=== PATIENT | male | born 1955 | race Caucasian/White ===

== ENCOUNTER 2018-01-19 00:10 | Observation (INO) | payer OTHER ==
[~2018-01-19 00:10] MED LIST: ACETAMINOPHEN 325 MG TAB PO PRN; HYDROmorphone HCL PF 1 MG/ML VIAL IV PUSH PRN; HYDROmorphone HCL PF 2 MG/ML VIAL IV PUSH PRN; LACTATED RINGER'S 1000 ML INJ 1,000 ML IV SCH; NALOXONE HCL 0.4 MG/ML AMP IV PUSH PRN; ONDANSETRON HCL 4 MG/2 ML VIAL IVP PRN; PERC5TAB12 PO; SODIUM CHLORIDE 0.9% FLUSH 10 ML FLUSH IV FLUSH PRN; TAMS5CAP PO; ZOFR4TAB3 SL
[2018-01-19 01:07] VITALS: BP 127/73; PULSE 56; RESP 16; TEMP 97.7; O2SAT 94
--- NOTE | 2018-01-19 04:32 | HHI.HP ---
HPI Service [facility] . Primary Care Physician Ivan Lutz MD . Admission Diagnosis Intractable pain . Diagnoses: (1) Intractable pain Chief Complaint: Intractable right flank/groin pain Travel History International Travel<30 Days: No Contact w/Intl Traveler <30 Da: No History of Present Illness Mr. Stockton is a pleasant 62 y/o male with a past medical history of hemophilia , nephrolithiasis, hepatitis C (treated), and renal cell CA who presented to the ER on 01/18/18 in [place] with right flank and groin pain radiating to his thigh. Abdomen/pelvis CT showed 4 mm right nephrolithiasis in distal ureter with mild hydronephrosis and 4 cm exophytic lower pole right renal mass and extensive lower hilar and mediastinal adenopathy. He was treated with IV Dilaudid but pain persisted and he was transferred to [facility] for observation and further medical management. The patient is seen in the CDU. The patient reports pain is now a 2/10, aching in quality. He had one episode of nausea with vomiting upon arrival 3 hours ago but reports he is currently nausea-free. He would like a trial of liquids and wants to follow up with [facility] which is where he is treated for renal cell CA. He says the 4 cm right renal mass is not new and he is treated with ablation at [facility] because of his high surgical risk due to hemophilia. Of note, when his symptoms started yesterday, he self injected 6000 units of Factor IX. Review of Systems Except as stated in HPI: all other systems reviewed are Neg Past Family Social History Past Medical History Hemophilia B Nephrolithiasis Renal Cell CA . Past Surgical History Appendectomy as a teen Left middle finger reattachment . Reported Medications Reported Meds & Active Scripts Active Zofran Odt (Ondansetron Odt) 4 Mg Tab 4 Mg SL Q6HR PRN Flomax (Tamsulosin HCl) 0.4 Mg Cap 0.4 Mg PO HS Percocet (Oxycodone-Acetaminophen) 5-325 mg Tab 1 Tab PO Q6H PRN . Allergies: Coded Allergies: No Known Allergies (Unverified , 01/18/18) Family History Father with Myasthenia gravis, from complications of age 86 Mother from parkinsonian-like brain dysfunction following anesthesia for lumbar laminectomy . Social History Tobacco: denies ever smoking Alcohol: rare - 1 - 2 times per year Illicit Drugs: denies . Physical Exam Vital Signs Vital Signs Date Time Temp Pulse Resp B/P (MAP) Pulse Ox O2 Delivery O2 Flow Rate FiO2 01/19/18 01:07 97.7 56 16 127/73 (91) 94 Physical Exam GENERAL: This is a well-nourished, well-developed patient, in no apparent distress. SKIN: No rashes lesions. Cool and dry. HEAD: Atraumatic. Normocephalic. EYES: No scleral icterus. No injection or drainage. ENT: Nose without bleeding, purulent drainage. NECK: Trachea midline. No JVD. CARDIOVASCULAR: Regular rate and rhythm without murmurs, gallops, or rubs. RESPIRATORY: Clear to auscultation. Breath sounds equal bilaterally. No wheezes , rales, or rhonchi. GASTROINTESTINAL: Abdomen soft, non-tender, nondistended. No guarding. MUSCULOSKELETAL: Extremities without clubbing, cyanosis, or edema. No calf tenderness. NEUROLOGICAL: Awake and alert. Motor and sensory grossly within normal limits. Normal speech. . Laboratory Laboratory Tests Test 01/18/18 18:20 01/18/18 18:41 01/18/18 18:56 White Blood Count 7.4 TH/MM3 Red Blood Count 5.67 MIL/MM3 Hemoglobin 17.2 GM/DL Hematocrit 49.0 % Mean Corpuscular Volume 86.4 FL Mean Corpuscular Hemoglobin 30.3 PG Mean Corpuscular Hemoglobin Concent 35.1 % Red Cell Distribution Width 11.6 % Platelet Count 196 TH/MM3 Mean Platelet Volume 9.4 FL Immature Granulocyte % (Auto) 0.4 % Neutrophils (%) (Auto) 65.4 % Lymphocytes (%) (Auto) 24.1 % Monocytes (%) (Auto) 8.8 % Eosinophils (%) (Auto) 0.9 % Basophils (%) (Auto) 0.4 % Immature Granulocyte # (Auto) 0.0 TH/MM3 Neutrophils # (Auto) 4.8 TH/MM3 Lymphocytes # (Auto) 1.8 TH/MM3 Monocytes # (Auto) 0.7 TH/MM3 Eosinophils # (Auto) 0.1 TH/MM3 Basophils # (Auto) 0.0 TH/MM3 CBC Comment DIFF FINAL Differential Comment Blood Urea Nitrogen 23 MG/DL Creatinine 1.70 MG/DL Random Glucose 115 MG/DL Total Protein 7.8 GM/DL Albumin 3.7 GM/DL Calcium Level 9.2 MG/DL Alkaline Phosphatase 64 U/L Aspartate Amino Transf (AST/SGOT) 18 U/L Alanine Aminotransferase (ALT/SGPT) 21 U/L Total Bilirubin 0.6 MG/DL Sodium Level 142 MEQ/L Potassium Level 4.1 MEQ/L Chloride Level 111 MEQ/L Carbon Dioxide Level 23.0 MEQ/L Anion Gap 8 MEQ/L Estimat Glomerular Filtration Rate 41 ML/MIN Lipase 167 U/L Urine Collection Type VOIDED Urine Color YELLOW Urine Turbidity CLEAR Urine pH 7.0 Urine Specific [place] 1.020 Urine Protein TRACE mg/dL Urine Glucose (UA) NEG mg/dL Urine Ketones NEG mg/dL Urine Occult Blood MOD Urine Nitrite NEG Urine Bilirubin NEG Urine Urobilinogen 0.2 MG/DL Urine Leukocyte Esterase NEG Urine RBC 4-9 /hpf Urine WBC 0-2 /hpf Urine Squamous Epithelial Cells 0-5 /hpf Urine Bacteria NONE /hpf Urine Mucus OCC /lpf Microscopic Urinalysis Comment CULT NOT INDICATED Prothrombin Time 10.0 SEC Prothromb Time International Ratio 1.0 RATIO Activated Partial Thromboplast Time 25.2 SEC . Imaging Last Impressions Abdomen/Pelvis CT 01/18/18 3368 Signed Impressions: Service Date/Time: Thursday, January 18, 2018 18:26 - CONCLUSION: 1. Right-sided obstructive uropathy with a 4 mm calculus in the distal right ureter and minimal right hydronephrosis. 2. 4 cm exophytic mass lower pole right kidney posteriorly surrounding stranding of the perinephric fat. There is a reported history of renal cell carcinoma. This could be postoperative change from radiofrequency ablation. 3. Extensive lower hilar and mediastinal adenopathy of unknown etiology but would consider metastatic disease given the history of renal cell carcinoma. 4. Numerous calcified gallstones without ductal dilatation. 5. Enlarged seminal vesicles. Jameson Mauro MD . Caprini VTE Risk Assessment Caprini VTE Risk Assessment: No/Low Risk (score <= 1) Caprini Risk Assessment Model Point Value = 1 Point Value = 2 Point Value = 3 Point Value = 5 Age 41-60 Minor surgery BMI > 25 kg/m2 Swollen legs Varicose veins or History of unexplained or recurrent spontaneous Oral contraceptives or hormone replacement Sepsis (< 1 month) Serious lung disease, including pneumonia (< 1 month) Abnormal pulmonary function Acute myocardial infarction Congestive heart failure (< 1 month) History of inflammatory bowel disease Medical patient at bed rest Age 61-74 Arthroscopic surgery Major open surgery (> 45 min) Laparoscopic surgery (> 45 min) Malignancy Confined to bed (> 72 hours) Immobilizing plaster cast Central venous access Age >= 75 History of VTE Family history of VTE Factor V Leiden Prothrombin [id number] Lupus anticoagulant Anticardiolipin antibodies Elevated serum homocysteine Heparin-induced thrombocytopenia Other congenital or acquired thrombophilia Stroke (< 1 month) Elective arthroplasty Hip, pelvis, or leg fracture Acute spinal cord injury (< 1 month) Prophylaxis Regimen Total Risk Factor Score Risk Level Prophylaxis Regimen 0-1 Low Early ambulation 2 Moderate Order ONE of the following: *Sequential Compression Device (SCD) *Heparin 5000 units SQ BID 3-4 Higher Order ONE of the following medications: *Heparin 5000 units SQ TID *Enoxaparin/Lovenox 40 mg SQ daily (WT < 150 kg, CrCl > 30 mL/min) *Enoxaparin/Lovenox 30 mg SQ daily (WT < 150 kg, CrCl > 10-29 mL/min) *Enoxaparin/Lovenox 30 mg SQ BID (WT < 150 kg, CrCl > 30 mL/min) AND/OR *Sequential Compression Device (SCD) 5 or more Highest Order ONE of the following medications: *Heparin 5000 units SQ TID (Preferred with Epidurals) *Enoxaparin/Lovenox 40 mg SQ daily (WT < 150 kg, CrCl > 30 mL/min) *Enoxaparin/Lovenox 30 mg SQ daily (WT < 150 kg, CrCl > 10-29 mL/min) *Enoxaparin/Lovenox 30 mg SQ BID (WT < 150 kg, CrCl > 30 mL/min) AND *Sequential Compression Device (SCD) Assessment and Plan Problem List: (1) Intractable pain ICD Code: R52 - Pain, unspecified Assessment and Plan Mr. Stockton is a pleasant 62 y/o male with a past medical history of hemophilia , nephrolithiasis, hepatitis C (treated), and renal cell CA who presented to the ER on 01/18/18 in [place] with right flank and groin pain radiating to his thigh. Abdomen/pelvis CT showed 4 mm right nephrolithiasis in distal ureter with mild hydronephrosis and 4 cm exophytic lower pole right renal mass and extensive lower hilar and mediastinal adenopathy. He was treated with IV Dilaudid but pain persisted and he was transferred to [facility] for observation and further medical management. Right renal mass Right nephrolithiasis - Abdomen/pelvis CT showed 4 mm right nephrolithiasis in distal ureter with mild hydronephrosis and 4 cm exophytic lower pole right renal mass and extensive lower hilar and mediastinal adenopathy. - Dilaudid 1 mg IV q3h PRN pain - Zofran 4 mg IV q6h PRN nausea/vomiting - At the time of my evaluation, the patient's symptoms have nearly completely resolved - Will give a trial of clear liquids - if no nausea/vomiting or pain, will likely be able to d/c in the a.m. - Patient wants to follow up with imaging at [facility] Hemophilia - denies joint pain - denies any bleeding - monitor CBC DVT prophylaxis - contraindicated due to hemophilia . Discussed Condition With Patient, RN, and Dr. Ding . Dianna Castillo Jan 19, 2018 04:32
[2018-01-19 05:05] VITALS: BP 113/68; PULSE 53; RESP 16; TEMP 97.9; O2SAT 96
[2018-01-19 08:09] VITALS: BP 123/65; PULSE 63; RESP 18; TEMP 98.1; O2SAT 94
[2018-01-19] MEDS ORDERED: SODIUM CHLORIDE 0.9% FLUSH 10 ML FLUSH IV FLUSH SCH (09:00)
[2018-01-19] MEDS ORDERED: PHEN0.4T PO (11:32)
[2018-01-19] MEDS ORDERED: HYDR-3288 PO (11:36)
== END 2018-01-19 12:12 | disposition home or self-care (01) ==
LOC: NEDDLT 00:10 → NEPGCP 00:20
PROVIDERS: ADMIT Internal Medicine; ATTEND Internal Medicine
DX: N28.89 Other specified disorders of kidney and ureter (principal); N13.2 Hydronephrosis with renal and ureteral calculous obstruction; R59.0 Localized enlarged lymph nodes; D67 Hereditary factor IX deficiency; R10.30 Lower abdominal pain, unspecified; Z85.528 Personal history of other malignant neoplasm of kidney
CPT/HCPCS: 74176; 80053; 81001; 83690; 85025; 85610; 85730; 96361; 96374; 96375; 96376; 99285; G0378; J1170; J2270; J2405; J7030; J7120

== ENCOUNTER 2018-01-28 08:54 | Emergency (ER) | payer OTHER ==
[~2018-01-28] VITALS: Ht 185.4 cm; Wt 95.5 kg
[~2018-01-28 08:54] MED LIST changes: -ACETAMINOPHEN 325 MG TAB PO PRN; +HYDR-3288 PO; -HYDROmorphone HCL PF 1 MG/ML VIAL IV PUSH PRN; -HYDROmorphone HCL PF 2 MG/ML VIAL IV PUSH PRN; -LACTATED RINGER'S 1000 ML INJ 1,000 ML IV SCH; -NALOXONE HCL 0.4 MG/ML AMP IV PUSH PRN; -ONDANSETRON HCL 4 MG/2 ML VIAL IVP PRN; -PERC5TAB12 PO; +PHEN0.4T PO; -SODIUM CHLORIDE 0.9% FLUSH 10 ML FLUSH IV FLUSH PRN; -TAMS5CAP PO; -ZOFR4TAB3 SL
[2018-01-28 08:55] VITALS: BP 167/98; PULSE 75; RESP 20; TEMP 98.3; O2SAT 98
[2018-01-28 09:06] VITALS: BP 151/85; PULSE 71; RESP 18; O2SAT 97
[2018-01-28] MEDS ORDERED: SODIUM CHLOR 0.9% 1000 ML INJ 1,000 ML IV SCH (09:17)
[2018-01-28 09:28] VITALS: O2SAT 98
[2018-01-28] MEDS ORDERED: SODIUM CHLORIDE 0.9% FLUSH 10 ML FLUSH IV FLUSH PRN (09:30)
[2018-01-28 09:48] LABS: AUTOMATED NEUTROPHIL # 3.8 TH/MM3 (1.8-7.7); BASOPHIL % 0.6 % (0.0-2.0); EOSINOPHIL # 0.1 TH/MM3 (0-0.4); EOSINOPHIL % 1.7 % (0.0-4.0); HEMATOCRIT 44.4 % (39.0-51.0); HEMOGLOBIN 15.7 GM/DL (13.0-17.0); LYMPH % 16.6 % (9.0-44.0); LYMPHOCYTE # 0.9 TH/MM3 (1.0-4.8); MEAN CELL VOLUME 86.9 FL (80.0-100.0); MEAN CORPUSCULAR HEMOGLOBIN 30.6 PG (27.0-34.0); MEAN CORPUSCULAR HGB CONC 35.2 % (32.0-36.0); MEAN PLATELET VOLUME 7.4 FL (7.0-11.0); MONO % 8.3 % (0.0-8.0); MONOCYTE # 0.4 TH/MM3 (0-0.9); NEUT % 72.8 % (16.0-70.0); PLATELET COUNT 240 TH/MM3 (150-450); RED BLOOD COUNT 5.11 MIL/MM3 (4.50-5.90); RED CELL DISTRIBUTION WIDTH 12.5 % (11.6-17.2); WHITE BLOOD COUNT 5.2 TH/MM3 (4.0-11.0)
[2018-01-28 09:58] LABS: PROTHROMBIN TIME - PATIENT 10.1 SEC (9.8-11.6)
[2018-01-28 09:59] LABS: ALBUMIN 3.3 GM/DL (3.4-5.0); AST (GOT) 16 U/L (15-37); BICARBONATE 23.6 MEQ/L (21.0-32.0); BLOOD UREA NITROGEN 20 MG/DL (7-18); CHLORIDE 107 MEQ/L (98-107); CREATININE 1.81 MG/DL (0.60-1.30); GLOMERULAR FILTRATION RATE 38 ML/MIN (>89); GLUCOSE,RANDOM 117 MG/DL (74-106); SODIUM (NA) 137 MEQ/L (136-145)
[2018-01-28 10:00] LABS: ALT (GPT) 16 U/L (12-78)
[2018-01-28 10:02] LABS: ALKALINE PHOSPHATASE 62 U/L (45-117); BACTERIA, URINE FEW /hpf; BILIRUBIN, URINE NEG (NEG); BLOOD, URINE LARGE (NEG); GLUCOSE,URINE NEG (NEG); KETONE, URINE NEG (NEG); MUCUS URINE FEW /lpf (OCC); NITRITE,URINE NEG (NEG); PH, URINE 5.5 (5.0-8.5); TOTAL BILIRUBIN ADULT 0.5 MG/DL (0.2-1.0); TOTAL PROTEIN 7.6 GM/DL (6.4-8.2); URINE LEUKOCYTE ESTERASE SMALL (NEG)
[2018-01-28 10:03] LABS: URINE COLOR LIGHT-RED (YELLW/STRAW)
[2018-01-28] MEDS ORDERED: IODIXANOL 320 MG/ML 50 ML VIAL (for Rad CT) IVCONTRAST ONE (10:40)
[2018-01-28] MEDS ORDERED: [UNRECOGNIZED DRUG - CODE] IV (10:45)
--- NOTE | 2018-01-28 10:55 | RADRPT ---
EXAM DATE/TIME: 01/28/2018 10:29 [place] COMPARISON: CT ABDOMEN & PELVIS W/O CONTRAST, January 18, 2018, 18:26. INDICATIONS : Abdominal pain, blood in urine since yesterday. History of renal cancer. IV CONTRAST: 50 cc Visipaque (iodixanol) IV ORAL CONTRAST: No oral contrast ingested. RADIATION DOSE: 10.96 CTDIvol (mGy) MEDICAL HISTORY : Renal carcinoma, Hepatitis C SURGICAL HISTORY : Appendectomy. ENCOUNTER: Initial ACUITY: 1 day PAIN SCALE: 0/10 LOCATION: Right abdomen TECHNIQUE: Volumetric scanning of the abdomen and pelvis was performed. Using automated exposure control and ad justment of the mA and/or kV according to patient size, radiation dose was kept as low as reasonably achievable to obtain optimal diagnostic quality images. DICOM format image data is available electro nically for review and comparison. FINDINGS: There is evidence of slight interval worsening of acute obstructive uropathy of the right distal uret er secondary to a 9 mm calcified calculus at the right ureterovesical junction resulting in moderate ureteropelvicatelectasis on the right. The exophytic mass arising from the posterior aspect of the ri ght kidney is stable and may represent the residual lesion from a treated known renal cell carcinoma. There is a stable low density lesion within the right lobe of the liver measuring 12 mm. There is al so a 6 mm low-density lesion within the posterior aspect of the right lobe of the liver Which is too small for accurate density measurement. Calcified gallstones are noted within the gallbladder. No gabriel iary ductal dilatation is noted. The spleen, pancreas, left kidney and bilateral adrenal glands are s table. There is persistent mediastinal and bilateral hilar lymphadenopathy as well as left periaortic retrocrural lymphadenopathy within the upper abdomen. There is a persistent noncalcified right lower lung field pulmonary nodule. Bilateral inguinal hernias containing only fat are also noted. The urin porfirio bladder is stable. The abdominal aorta and inferior vena cava are stable. The bony structures are stable. CONCLUSION: 1. Slight interval worsening of acute obstructive uropathy of the right distal ureter secondary to a 9 mm calcified calculus at the right ureterovesical junction resulting in moderate ureteropelvicatele ctasis on the right. 2. Otherwise no significant change compared to 01/18/18. Mp Healy MD on January 28, 2018 at 10:40 Board Certified Radiologist. This report was verified electronically.
[2018-01-28 11:53] VITALS: BP 151/80; PULSE 56; RESP 18; O2SAT 99
[2018-01-28 13:46] VITALS: BP 133/86; PULSE 75; RESP 18; O2SAT 99
[2018-01-28] MEDS ORDERED: TAMS5CAP PO (13:58)
--- NOTE | 2018-01-28 13:58 | PD ---
HPI Chief Complaint: Complaint Time Seen by Provider: 09:08 Travel History International Travel<30 days: No Contact w/Intl Traveler<30days: No Traveled to known affect area: No History of Present Illness HPI Patient is a 62 year old male, with history of Hemophilia (Factor 9 deficient), who comes in complaining of hematuria. He was here January 18 and diagnosed with a renal stone. He says the pain has gone away and the hematuria had stopped until yesterday. He says he was unsure if this was related to the stone or his hemophilia. He gave himself a dose of Benefix yesterday. He denies nausea, vomiting, dizziness, chest pain. He says the hematuria has not changed since yesterday. Severity is mild to moderate. PFSH Past Medical History Blood Disorders: Yes (HEMOPHILIA) Cancer: Yes (RENAL CELL CARCINOMA) Diminished Hearing: Yes (BILATERAL HEARING AIDS) Genitourinary: Yes (RENAL BLEED, KIDNEY STONES) Hepatitis: Yes (C- HAS BEEN TREATED) Kidney Stones: Yes Immunizations Current: Yes Past Surgical History Appendectomy: Yes Other Surgery: Yes (KIDNEY LESION ABLATION) Social History Alcohol Use: No Tobacco Use: No Substance Use: No Allergies-Medications (Allergen,Severity, Reaction): Coded Allergies: No Known Allergies (Unverified , 01/18/18) Reported Meds & Prescriptions Reported Meds & Active Scripts Active [place] (Hydrocodone-Acetaminophen) 7.5-325 mg Tab 1 Tab PO Q4H PRN Pyridium (Phenazopyridine HCl) 100 Mg Tab 100 Mg PO Q8H PRN Reported Benefix Inj (Coagulation Factor IX (Recomb) Inj) 2,000 Unit Inj 2,000 Units IV Review of Systems Except as stated in HPI: all other systems reviewed are Neg General / Constitutional: No: Fever, Chills HENT: No: Headaches, Lightheadedness Cardiovascular: No: Chest Pain or Discomfort Respiratory: No: Shortness of Breath Gastrointestinal: No: Nausea, Vomiting Genitourinary: Positive: Hematuria Skin: No Rash, No Change in Pigmentation Neurologic: No: Weakness, Dizziness Physical Exam Narrative GENERAL: Awake and alert, in no acute distress. SKIN: Focused skin assessment warm/dry. HEAD: Atraumatic. Normocephalic. EYES: Pupils equal and round. No scleral icterus. ENT: No nasal bleeding or discharge. Mucous membranes pink and moist. NECK: Trachea midline. No JVD. CARDIOVASCULAR: Regular rate and rhythm. No murmur appreciated. RESPIRATORY: No accessory muscle use. Clear to auscultation. Breath sounds equal bilaterally. GASTROINTESTINAL: Abdomen soft, non-tender, nondistended. No CVA tenderness. MUSCULOSKELETAL: No obvious deformities. No clubbing. No cyanosis. No edema. NEUROLOGICAL: Awake and alert. No obvious cranial nerve deficits. Motor grossly within normal limits. Normal speech. PSYCHIATRIC: Appropriate mood and affect; insight and judgment normal. Data Data Last Documented VS Vital Signs Date Time Temp Pulse Resp B/P (MAP) Pulse Ox O2 Delivery O2 Flow Rate FiO2 01/28/18 13:46 75 18 133/86 (102) 99 Room Air 01/28/18 08:55 98.3 Orders Orders Complete Blood Count With Diff (01/28/18 09:17) Comprehensive Metabolic Panel (01/28/18 09:17) Prothrombin Time / Inr (Pt) (01/28/18:17) Act Partial Throm Time (Ptt) (01/28/18 09:17) Urinalysis - C+S If Indicated (01/28/18 09:17) Ct Abd/Pel W Iv Contrast(Rout) (01/28/18 09:17) Iv Access Insert/Monitor (01/28/18:17) Ecg Monitoring (01/28/18 09:17) Oximetry (01/28/18 09:17) Sodium Chlor 0.9% 1000 Ml Inj (Ns 1000 M (01/28/18 09:17) Sodium Chloride 0.9% Flush (Ns Flush) (01/28/18 09:30) Type And Screen (01/28/18 09:17) Urine Culture (01/28/18 09:25) Iodixanol 320 Inj (Rad Ct) (Visipaque 32 (01/28/18 10:40) Labs Laboratory Tests Test 01/28/18 09:25 White Blood Count 5.2 TH/MM3 Red Blood Count 5.11 MIL/MM3 Hemoglobin 15.7 GM/DL Hematocrit 44.4 % Mean Corpuscular Volume 86.9 FL Mean Corpuscular Hemoglobin 30.6 PG Mean Corpuscular Hemoglobin Concent 35.2 % Red Cell Distribution Width 12.5 % Platelet Count 240 TH/MM3 Mean Platelet Volume 7.4 FL Neutrophils (%) (Auto) 72.8 % Lymphocytes (%) (Auto) 16.6 % Monocytes (%) (Auto) 8.3 % Eosinophils (%) (Auto) 1.7 % Basophils (%) (Auto) 0.6 % Neutrophils # (Auto) 3.8 TH/MM3 Lymphocytes # (Auto) 0.9 TH/MM3 Monocytes # (Auto) 0.4 TH/MM3 Eosinophils # (Auto) 0.1 TH/MM3 Basophils # (Auto) 0.0 TH/MM3 CBC Comment DIFF FINAL Differential Comment Prothrombin Time 10.1 SEC Prothromb Time International Ratio 1.0 RATIO Activated Partial Thromboplast Time 31.7 SEC Urine Color LIGHT-RED Urine Turbidity CLEAR Urine pH 5.5 Urine Specific [place] 1.015 Urine Protein 30 mg/dL Urine Glucose (UA) NEG mg/dL Urine Ketones NEG mg/dL Urine Occult Blood LARGE Urine Nitrite NEG Urine Bilirubin NEG Urine Urobilinogen LESS THAN 2.0 MG/DL Urine Leukocyte Esterase SMALL Urine RBC /hpf Urine WBC 32 /hpf Urine Bacteria FEW /hpf Urine Mucus FEW /lpf Microscopic Urinalysis Comment CULTURE INDICATED Blood Urea Nitrogen 20 MG/DL Creatinine 1.81 MG/DL Random Glucose 117 MG/DL Total Protein 7.6 GM/DL Albumin 3.3 GM/DL Calcium Level 9.0 MG/DL Alkaline Phosphatase 62 U/L Aspartate Amino Transf (AST/SGOT) 16 U/L Alanine Aminotransferase (ALT/SGPT) 16 U/L Total Bilirubin 0.5 MG/DL Sodium Level 137 MEQ/L Potassium Level 4.0 MEQ/L Chloride Level 107 MEQ/L Carbon Dioxide Level 23.6 MEQ/L Anion Gap 6 MEQ/L Estimat Glomerular Filtration Rate 38 ML/MIN [facility] Medical Decision Making Medical Screen Exam Complete: Yes Emergency Medical Condition: Yes Medical Record Reviewed: Yes Differential Diagnosis renal stone vs factor deficiency vs hematoma Narrative Course Patient is a 62-year-old male comes in complaining of hematuria. He has no flank pain at this time. IV established, labs sent. Labs show a hemoglobin of 15.7. PTT is slightly elevated at 31.7. CT abdomen pelvis performed shows the renal stone, no evidence of bleeding from the kidney. Last 24 hours Impressions Abdomen/Pelvis CT 01/28/18 0917 Signed Impressions: Service Date/Time: Sunday, January 28, 2018 10:29 - CONCLUSION: 1. Slight interval worsening of acute obstructive uropathy of the right distal ureter secondary to a 9 mm calcified calculus at the right ureterovesical junction resulting in moderate ureteropelvicatelectasis on the right. 2. Otherwise no significant change compared to 01/18/18. Mp Healy MD Patient advised of the results. I spoke with Dr. Arriaza of hematology who suggests he gave himself a second dose of BeneFIX today and again tomorrow if needed. I spoke with Dr. Garza of urology, who says patient can follow-up in the office Wednesday as long as pain is controlled. He will be discharged with a prescription for Flomax. He has not had any pain. He is advised to return if his symptoms worsen. Advised to follow-up with hematology as well as urology. He and his are comfortable with this plan at this time. Diagnosis Primary Impression: Renal stone Additional Impression: Hematuria Qualified Codes: R31.9 - Hematuria, unspecified Referrals: Justin Garza MD call for appointment Wednesday Morning Patient Instructions: General Instructions, Hematuria (ED), Kidney Stones (ED) Additional Instructions: Take another dose of your BeneFIX today and tomorrow if needed. Follow-up with urology and hematology. Return to the ED as needed for any worsening symptoms. Scripts Tamsulosin (Flomax) 0.4 Mg Cap 0.4 MG PO HS for Manage Prostate Problems, #5 CAP 0 Refills Prov: Lila Alfaro MD 01/28/18 Disposition: 01 DISCHARGE HOME Condition: Stable Lila Alfaro MD Jan 28, 2018 13:58
--- NOTE | 2018-01-28 14:30 | PD.CONS ---
HPI Service Urology Consult Requested By ER team Reason for Consult Rt UVJ stone and hydro Primary Care Physician Non-Staff Diagnosis: (1) Right ureteral calculus ICD Code: N20.1 - Calculus of ureter (2) Ureteral stone with hydronephrosis ICD Code: N13.2 - Hydronephrosis with renal and ureteral calculous obstruction History of Present Illness Pt is a 62 y.o. M with h/o renal stones, he passed one stone about 4y/a. 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 He is currently admitted for obstructing 9mm Right UVJ stone and mild to mod hydronephrosis. He started having right groin discomfort/ pain and occasional chills since last week, went to [facility] 01/18/[address] scan showed distal right ureteral stone, he was d/c home with Keflex ( still takes it but c/o diarrhea with it) and pain meds and was told to see . He is back to the hospital now because started having hematuria since yesterday. He denies any pain, no fever, no N/V. His Cr is slightly elevated. No leukocytosis. UC is pending. He denies any difficulties with voiding. He also has h/o hemophilia, factor IX. Review of Systems Except as stated in HPI: all other systems reviewed are Neg Past Family Social History Past Medical History Hemophilia, RCC, renal stones Past Surgical History Cryoablation of Rt RCC Left 3rd digit sx Allergies: Coded Allergies: No Known Allergies (Unverified , 01/18/18) Family History non contributory Social History n/a Physical Exam Vital Signs Date Time Temp Pulse Resp B/P (MAP) Pulse Ox O2 Delivery O2 Flow Rate FiO2 01/28/18 13:46 75 18 133/86 (102) 99 Room Air 01/28/18 11:53 56 18 151/80 (103) 99 Room Air 01/28/18 09:28 98 Room Air 01/28/18 09:14 96 18 01/28/18 09:06 71 18 151/85 (107) 97 Room Air 01/28/18 08:55 98.3 75 20 167/98 (121) 98 Physical Exam GENERAL: This is a well-nourished, well-developed patient, in no apparent distress. HEAD: Normocephalic. NECK:Supple, nontender CARDIOVASCULAR: Regular rate and rhythm without murmurs, gallops, or rubs. RESPIRATORY: Clear to auscultation. Breath sounds equal bilaterally. No wheezes , rales, or rhonchi. GASTROINTESTINAL: Abdomen soft, non-tender. GENITOURINARY: no CVAT, bladder non distended MUSCULOSKELETAL: Gait not assessed NEUROLOGICAL: Awake and alert. . Lab results reviewed: Yes Laboratory Tests Test 01/28/18 09:25 White Blood Count 5.2 Red Blood Count 5.11 Hemoglobin 15.7 Hematocrit 44.4 Mean Corpuscular Volume 86.9 Mean Corpuscular Hemoglobin 30.6 Mean Corpuscular Hemoglobin Concent 35.2 Red Cell Distribution Width 12.5 Platelet Count 240 Mean Platelet Volume 7.4 Neutrophils (%) (Auto) 72.8 Lymphocytes (%) (Auto) 16.6 Monocytes (%) (Auto) 8.3 Eosinophils (%) (Auto) 1.7 Basophils (%) (Auto) 0.6 Neutrophils # (Auto) 3.8 Lymphocytes # (Auto) 0.9 Monocytes # (Auto) 0.4 Eosinophils # (Auto) 0.1 Basophils # (Auto) 0.0 CBC Comment DIFF FINAL Differential Comment Prothrombin Time 10.1 Prothromb Time International Ratio 1.0 Activated Partial Thromboplast Time 31.7 Urine Color LIGHT-RED Urine Turbidity CLEAR Urine pH 5.5 Urine Specific [place] 1.015 Urine Protein 30 Urine Glucose (UA) NEG Urine Ketones NEG Urine Occult Blood LARGE Urine Nitrite NEG Urine Bilirubin NEG Urine Urobilinogen LESS THAN 2.0 Urine Leukocyte Esterase SMALL Urine RBC Urine WBC 32 Urine Bacteria FEW Urine Mucus FEW Microscopic Urinalysis Comment CULTURE INDICATED Blood Urea Nitrogen 20 Creatinine 1.81 Random Glucose 117 Total Protein 7.6 Albumin 3.3 Calcium Level 9.0 Alkaline Phosphatase 62 Aspartate Amino Transf (AST/SGOT) 16 Alanine Aminotransferase (ALT/SGPT) 16 Total Bilirubin 0.5 Sodium Level 137 Potassium Level 4.0 Chloride Level 107 Carbon Dioxide Level 23.6 Anion Gap 6 Estimat Glomerular Filtration Rate 38 Date/Time Source Procedure Growth Status 01/28/18 09:25 Urine Clean Catch Urine Culture Pending Received Result Diagram: 01/28/1892401/28/18924 Personally reviewed images: Yes Imaging Last Impressions Abdomen/Pelvis CT 01/28/18 0917 Signed Impressions: Service Date/Time: Sunday, January 28, 2018 10:29 - CONCLUSION: 1. Slight interval worsening of acute obstructive uropathy of the right distal ureter secondary to a 9 mm calcified calculus at the right ureterovesical junction resulting in moderate ureteropelvicatelectasis on the right. 2. Otherwise no significant change compared to 01/18/18. Mp Healy MD Assessment and Plan Assessment and Plan 62y.o M with obstaructing 9mm right UVJ stone and moderate hydro He is not symptomatic now. VS are stable CR is 1.8, other labs are stable. + hematuria No acute intervention needed. Stone is basically almost at the bladder already Continue management as per ER team Pt can be d/c home with pain meds, Flomax and strainer, Advised pt to drink plenty of water Instructed pt if antbx are causing diarrhea to stop them He will need to f/u as outpt with Dr Garza at our clinic on Wednesday to discuss further treatment plan if will not pass this stone by that time If fever N/V or severe pain advised pt to go to ER No additional recommendations at this point Discussed Condition With Dr Garza, who agrees with this plan Tyler Gordon Jan 28, 2018 14:30
== END 2018-01-28 14:26 | disposition home or self-care (01) ==
LOC: NEPE 08:54
DX: N13.2 Hydronephrosis with renal and ureteral calculous obstruction (principal); R31.9 Hematuria, unspecified; B19.20 Unspecified viral hepatitis C without hepatic coma; D66 Hereditary factor VIII deficiency
CPT/HCPCS: 74177; 80053; 81001; 85025; 85610; 85730; 86850; 86900; 86901; 87086; 96360; 99284; J7030; Q9967